=== PATIENT | female | born 1940 | race Caucasian/White ===

== ENCOUNTER → 2023-11-15 09:04 | Outpatient (REF) | payer OTHER, SELFPAY | LOC: HWRCS 09:04 | PROVIDERS: ATTENDING PHYSICIAN Internal Medicine Cardiovascular Disease; FAMILY PHYSICIAN Internal Medicine | DX: I51.81 Takotsubo syndrome (principal); I35.1 Nonrheumatic aortic (valve) insufficiency | CPT/HCPCS: 93306 ==

== ENCOUNTER → 2023-11-27 07:18 | Outpatient (REF) | payer OTHER, SELFPAY | LOC: RCS 07:18 | PROVIDERS: ATTENDING PHYSICIAN Internal Medicine Cardiovascular Disease; FAMILY PHYSICIAN Internal Medicine | DX: I51.81 Takotsubo syndrome (principal); I34.0 Nonrheumatic mitral (valve) insufficiency; I35.1 Nonrheumatic aortic (valve) insufficiency; R07.89 Other chest pain | CPT/HCPCS: 93017 ==

== ENCOUNTER 2024-05-06 08:47 | Emergency (ER) | payer OTHER, SELFPAY ==
[2024-05-06 08:57] VITALS: BP 158/88
[2024-05-06 09:22] LABS: % Basophils 0.7 % (0-2); % Eosinophils 13.6 % (0-6); % Immature Granulocytes 0.2 % (0-0.5); % Lymphocytes 34.4 % (20.5-51.1); % Monocytes 8.6 % (1.7-9.3); % Neutrophils 42.5 % (42.2-75.2); Absolute Eosinophils 0.6 10^3/uL (0-0.7); Absolute Lymphocytes 1.5 10^3/uL (1.2-3.4); Absolute Monocytes 0.4 10^3/uL (0.1-0.6); Absolute Neutrophils 1.9 10^3/uL (1.4-6.5); Hematocrit 40.4 % (37.0-47.0); Hemoglobin 13.6 g/dL (12.0-16.0); Mean Corp Hgb Conc. 33.7 g/dL (33.0-37.0); Mean Corpuscular Hgb 31.8 pg (27.0-31.0); Mean Corpuscular Volume 94.4 fL (81.0-99.0); Mean Platelet Volume 9.2 fL (7.4-10.4); Nucleated Red Blood Cells % 0 %; Platelet Count 270 10^3/uL (130-400); Red Blood Cell Count 4.28 10^6/uL (4.20-5.40); Red Cell Dist. Width 12.7 % (11.5-14.5); White Blood Cell Count 4.4 10^3/uL (4.8-10.8)
[2024-05-06 09:30] LABS: ALT (SGPT) 14 U/L (0-35); AST (SGOT) 24 U/L (14-36); Albumin 4.9 g/dl (3.5-5.0); Alkaline Phosphatase 60 U/L (38-126); Blood Urea Nitrogen 19 mg/dl (7-17); Calcium 9.3 mg/dl (8.4-10.2); Carbon Dioxide 27 mmol/L (22-30); Chloride 103 mmol/L (98-107); Glucose 96 mg/dl (70-99); Potassium 3.9 mmol/L (3.5-5.1); Sodium 139 mmol/L (135-145); Total Bilirubin 0.7 mg/dl (0.2-1.3); Total Protein 7.9 g/dl (6.3-8.2); eGFR > 60.00
[2024-05-06 09:33] LABS: INR 0.94; PT 12.9 Sec (11.4-14.6)
[2024-05-06 09:41] LABS: Troponin I < 0.012 ng/ml
--- NOTE | 2024-05-06 11:08 | ED.GENMED ---
History of Present Illness
<Christie Phillips PA-C - Last Filed: 05/06/24 19:14>
General
Chief Complaint: Chest Pain
Source: patient
Exam Limitations: none
Time Seen by Provider: 05/06/24 11:06
Nursing documentation reviewed up to this point in time: agreed with
History of Present Illness
History of Present Illness:
This is a 84-year-old female with a past medical history of coronary artery disease, Takotsubo's cardiomyopathy, hypertension, aortic regurg who presents emergency department today with concerns of chest pain since last night. Patient reports that
she was sitting on the couch when she first felt this pain. She said she started to take deep breaths, walking around her home watch a movie and went to bed. Patient then reports that she woke up with this pain which concerned her. She rates the
pain a 6 out of 10 in severity. She feels that yesterday was more pressure and now today she feels like it is squeezing quality. There is nothing that relieves the pain. She has no associated shortness of breath. This feels different than her
prior NSTEMI when she had pain across her entire chest. She denies any syncopal episodes. She follows with Dr. Saravia from [facility] cardiology. She denies nausea, vomiting, diaphoresis, fevers or chills, abdominal pain.
Past History
<Christie Phillips PA-C - Last Filed: 05/06/24 19:14>
Past History
ED Past Medical History: HTN, Hypercholesterolemia, Psychiatric (Anxiety) and Other (Takotsubo cardiomyopathy)
Social History
Tobacco: Non-smoker
Alcohol: Occasional
Drug: None
Personal:
Living: alone
Family History
Family History: Diabetes and CAD
Review of Systems
<Christie Phillips PA-C - Last Filed: 05/06/24 19:14>
Review of Systems
All Other Systems: ROS reviewed and negative except as documented in HPI and ROS
Phy Exam
<Christie Phillips PA-C - Last Filed: 05/06/24 19:14>
Physical Exam
Physical Exam:
General: Patient is well appearing and in no acute distress; non-toxic
Skin: Warm and dry, no rashes or lesions
Head: Normocephalic, atraumatic
Eyes: Sclera non-icteric. EOMs intact.
Cardiac: Regular rate and rhythm, no murmurs, no tenderness to palpation of the external chest wall
Peripheral Vascular: No lower extremity swelling or edema, 2+ DP pulses bilaterally
Pulm: Normal respiratory effort, no wheezes, rales, or rhonchi
Neuro: CN II-XII intact, no focal neurologic deficits.
Psychiatric: Appropriate mood and affect.
Scores
<Christie Phillips PA-C - Last Filed: 05/06/24 19:14>
Heart Score for Chest Pain Patients
STEMI patient?: No
History: Slightly or Non-Suspicious
ECG: Normal
Age: >/= 65 years
Risk Factors: 1 or 2 Risk Factors
Troponin: </= Normal Limit
Heart Score for Chest Pain Patients: 3
Heart Score Risk: 2.5% MACE over next 6 weeks
Course
<Christie Phillips PA-C - Last Filed: 05/06/24 19:14>
Orders/Labs/Results
Orders:
Orders
05/06/24 08:55
Electrocardiogram (*1) Urgent
Reason for Study: Chest Pain
EKG- Treatment ONCE
05/06/24 09:05
Complete Blood Count/With Diff Urgent
Comprehensive Metabolic Panel Urgent
Prothrombin Time Urgent
Troponin I Urgent
05/06/24 11:26
CR Chest - 2 Views Urgent
Comment:
Reason For Exam: left sided chest pain
05/06/24 12:00
Electrocardiogram (*1) Urgent
Reason for Study: Chest Pain
05/06/24 12:06
Aspirin 325 mg PO NOW STA
05/06/24 12:08
Nitroglycerin Sublingual [Nitrostat (Sublingual)] 0.4 mg SL NOW STA
05/06/24 12:31
Nitroglycerin Sublingual [Nitrostat (Sublingual)] 0.4 mg .ROUTE .STK-MED ONE
05/06/24 12:41
Troponin I Urgent
Abnormal Lab Results
05/06/24
09:05
WBC 4.4 L 10^3/uL
(4.8-10.8)
MCH 31.8 H pg
(27.0-31.0)
Eosinophils % 13.6 H %
(0-6)
BUN 19 H mg/dl
(7-17)
05/06/24 09:05
05/06/24 09:05
Vital Signs
Initial and Last Documented VS:
Initial Vital Signs
Temp Pulse Resp BP Pulse Ox
97.9 F 64 18 158/88 98
05/06/24 08:57 05/06/24 08:57 05/06/24 08:57 05/06/24 08:57 05/06/24 08:57
Last Documented Vital Signs
Temp Pulse Resp BP Pulse Ox
97.9 F 64 18 159/71 98
05/06/24 08:57 05/06/24 08:57 05/06/24 08:57 05/06/24 12:35 05/06/24 08:57
<Stacy Troncoso MD - Last Filed: 05/06/24 12:11>
Orders/Labs/Results
Orders:
Orders
05/06/24 08:55
Electrocardiogram (*1) Urgent
Reason for Study: Chest Pain
EKG- Treatment ONCE
05/06/24 09:05
Complete Blood Count/With Diff Urgent
Comprehensive Metabolic Panel Urgent
Prothrombin Time Urgent
Troponin I Urgent
05/06/24 11:26
CR Chest - 2 Views Urgent
Comment:
Reason For Exam: left sided chest pain
05/06/24 12:00
Electrocardiogram (*1) Urgent
Reason for Study: Chest Pain
05/06/24 12:06
Aspirin 325 mg PO NOW STA
05/06/24 12:08
Nitroglycerin Sublingual [Nitrostat (Sublingual)] 0.4 mg SL NOW STA
05/06/24 12:31
Nitroglycerin Sublingual [Nitrostat (Sublingual)] 0.4 mg .ROUTE .STK-MED ONE
05/06/24 12:41
Troponin I Urgent
Abnormal Lab Results
05/06/24
09:05
WBC 4.4 L 10^3/uL
(4.8-10.8)
MCH 31.8 H pg
(27.0-31.0)
Eosinophils % 13.6 H %
(0-6)
BUN 19 H mg/dl
(7-17)
05/06/24 09:05
05/06/24 09:05
Vital Signs
Initial and Last Documented VS:
Initial Vital Signs
Temp Pulse Resp BP Pulse Ox
97.9 F 64 18 158/88 98
05/06/24 08:57 05/06/24 08:57 05/06/24 08:57 05/06/24 08:57 05/06/24 08:57
Last Documented Vital Signs
Temp Pulse Resp BP Pulse Ox
97.9 F 64 18 159/71 98
05/06/24 08:57 05/06/24 08:57 05/06/24 08:57 05/06/24 12:35 05/06/24 08:57
<Christie Phillips PA-C - Last Filed: 05/06/24 19:14>
MDM/Problems Addressed
Differential Diagnosis Includes:
ACS, costochondritis, PE, pneumothorax
MDM/Problems Addressed:
84-year-old female with a past medical history of coronary artery disease, hypertension presents emergency department with constant left-sided chest pain. This started last night. She rates a 6 out of 10 in severity. She has no other associated
symptoms. Her physical exam is unremarkable. Her EKG shows normal sinus rhythm with no ischemic changes and her initial troponin is undetectable. Will send off a repeat troponin and chest x-ray.
On reexamination, patient does note an improvement in her pain but it is still lingering. Her repeat troponin is undetectable and repeat EKG remains unchanged. CXR negative for acute disease. Patient has a follow up appointment with Dr. Saravia in
June, discharge patient with chest pain hotline so she can get a sooner follow up appointment. Patient stable for discharge.
Chronic conditions affecting care:
HTN, takisubos
<Christie Phillips PA-C - Last Filed: 05/06/24 19:14>
*Pulse Oximetry
Patient hypoxic: no
*EKG
Interpreted by ED Provider?: Yes
EKG Intrepretation Date: 05/06/24
Interpretation: normal
Comparison EKG: changes noted (increase in T wave amplitude)
Heart Rate: 65
Rate: normal
Rhythm: sinus
[place]: normal axis
Interval: normal interval
*Critical Care Note
Total Time (30-74mins, 75-104mins- exclusive of procedures): Not Applicable
Data Reviewed
Review of Other/Old Records Reveals: Records (Reviewed exercise stress test from 11/27/2023 test was negative for ischemia) and Discharge Summary (Reviewed discharge summary from 02/05/2021, patient was found to have Takotsubo cardiomyopathy)
Source: patient and records
Prescriptions/Medications Considered But Not Given:
n/a
<Christie Phillips PA-C - Last Filed: 05/06/24 19:14>
Patient Management
Escalation/DeEscalation of care consider admission/obs:
Patient stable for discharge
ED Attending Note
<Christie Phillips PA-C - Last Filed: 05/06/24 19:14>
-
Portions of this chart may have been created with voice recognition software.� Occasional wrong word or��sound alike� substitutions may have occurred due to the inherent limitations of voice recognition software.
<Stacy Troncoso MD - Last Filed: 05/06/24 12:11>
ED Attending Note
Patient seen and examined by attending physician: Yes
I performed the substantive portion of visit, reviewed & personally made and approve the management plan that is documented in note by myself or GAURAV.: Yes
ED Attending Note:
I have seen and evaluated the patient with a [id number] encounter. I have spoken to the [PA] and involved in the medical history, the physical exam, medical decision making.
Evaluation and management service: agree unless noted differently below.
Results interpretation: agree unless noted differently below.
Patient is a 84-year-old woman presenting to the emergency department chest pain. Per chart review patient was admitted in February 2021 for elevation in her troponin was found to have Takotsubo cardiomyopathy. She does follow with cardiology.
She is not on aspirin. Yesterday while she was sleeping she woke up with left-sided chest pain. She had an easy day yesterday thinking that it would help the pain however she went to sleep and woke up at 6 AM the pain was different. It does not
feel like when she had to come to the emergency department last time. She did see cardiology back in the summer and was told that she had a leaky valve. No shortness of breath. No nausea or vomiting. No diaphoresis. No leg swelling or
hemoptysis.
GENERAL: in no acute distress
HEENT: normocephalic, extraocular movements intact, moist oral mucosa
NECK: normal inspection
RESPIRATORY: no respiratory distress, clear to auscultation bilaterally
CARDIOVASCULAR: regular rate and rhythm
ABDOMEN/: soft, non-distended, non-tender to palpation, no rebound or guarding
EXTREMITIES: non-tender, no edema/swelling
NEUROLOGIC: awake and alert, moves all extremities
SKIN: warm
84-year-old woman presenting to the emergency department with chest pain. Vitals unremarkable and exam is reassuring. Consist of atypical ACS versus pulmonary edema. History exam not consistent with PE or dissection. Will check blood work
including delta troponin given that the chest pain change at 6 AM. EKG per my interpretation normal sinus rhythm. Anticipate discharge if troponins are normal with rapid cardiology follow-up.
Discharge Plan
Departure
Patient Disposition: Home (Routine Discharge)
Date of Disposition: 05/06/24
Time of Disposition: 13:45
Patient with high blood pressure during this ER visit?: Yes
Condition: Good
Discharge Problem:
Chest pain
Instructions: Chest Pain CBC Follow Up, BLOOD PRESSURE
Prescriptions:
No Action
cetirizine 10 MG tablet
10 mg PO DAILY
docusate sodium 100 MG capsule
200 mg PO DAILY
cholecalciferol (vitamin D3) 1,000 UNITS tablet
1,000 units PO DAILY
biotin 1 MG capsule
1 mg PO DAILY
atorvastatin 40 MG tablet
40 mg PO QPM Qty: 0 0RF
metoprolol succinate 25 MG tablet extended release 24 hr
25 mg PO HS Qty: 0 0RF
Referrals:
Matilda Geronimo, [Family Provider] -
Activity Restrictions/Additional Instructions:
You should receive a call from Dr. Saravia's office to schedule a sooner follow up appointment.
PLEASE RETURN EMERGENCY DEPARTMENT SHOULD YOU DEVELOP ACUTE WORSENING OR SYMPTOMS, WEAKNESS IN ONE-SIDED BODY VERSUS OTHER, SHORTNESS OF BREATH, NAUSEA VOMITING, SYNCOPAL EPISODES, SHARP UPPER BACK PAIN, OR ANY OTHER SIGNS OR SYMPTOMS WORRISOME TO
YOU.
Interventions
Interventions:
*Risk Screen - Suicide Last Done: 05/06/24 08:57
*General Assessment Last Done: 05/06/24 08:57
*Neglect/Abuse Screening Last Done: 05/06/24 08:57
*ED COVID-19 Vaccine History Last Done: 05/06/24 12:28
*Nursing Disposition Last Done: 05/06/24 13:57
ED- Cardiac Assessment Last Done: 05/06/24 13:57
Discharge Date and Time
Discharge Date/Time: 05/06/24 13:58
Print Language: [place]URUN[place]
[2024-05-06 12:27] VITALS: BMI 21.4
[2024-05-06] MEDS: NITROSTAT (SUBLINGUAL) 0.4 MG SL (12:35)
[2024-05-06 13:18] LABS: Troponin I < 0.012 ng/ml
== END 2024-05-06 13:58 | disposition home or self-care (01) ==
LOC: EMR 08:47
PROVIDERS: Emergency Medicine; Physician Assistant; EMERGENCY PHYSICIAN Student in an Organized Health Care Education/Training Program; FAMILY PHYSICIAN Internal Medicine; REFERRING PHYSICIAN Internal Medicine Cardiovascular Disease
DX: R07.89 Other chest pain (principal); I25.10 Atherosclerotic heart disease of native coronary artery without angina pectoris; I51.81 Takotsubo syndrome; I10 Essential (primary) hypertension; I25.2 Old myocardial infarction; E78.00 Pure hypercholesterolemia, unspecified; Z82.49 Family history of ischemic heart disease and other diseases of the circulatory system; Z83.3 Family history of diabetes mellitus
CPT/HCPCS: 99283; 71046; 80053; 84484; 85025; 85610; 93005

== ENCOUNTER → 2024-05-16 16:04 | Outpatient (REF) | payer OTHER, SELFPAY ==
[2024-05-16 17:00] LABS: Troponin I < 0.012 ng/ml
[2024-05-16 17:04] LABS: ALT (SGPT) 15 U/L (0-35); AST (SGOT) 24 U/L (14-36); Albumin 4.1 g/dl (3.5-5.0); Alkaline Phosphatase 65 U/L (38-126); Direct Bilirubin 0.1 mg/dl (0.0-0.4); Lipase 129 U/L (23-300); Total Bilirubin 0.5 mg/dl (0.2-1.3); Total Protein 6.9 g/dl (6.3-8.2)
== END ==
LOC: REG 16:04
PROVIDERS: ATTENDING PHYSICIAN Internal Medicine Cardiovascular Disease
DX: R07.89 Other chest pain (principal)
CPT/HCPCS: 36415; 80076; 83690; 84484

== ENCOUNTER → 2024-05-17 11:06 | Outpatient (REF) | payer OTHER, SELFPAY | LOC: HWRCS 11:06 | PROVIDERS: ATTENDING PHYSICIAN Internal Medicine Cardiovascular Disease; FAMILY PHYSICIAN Internal Medicine | DX: I10 Essential (primary) hypertension (principal); R42 Dizziness and giddiness; I51.81 Takotsubo syndrome; R07.89 Other chest pain; I35.1 Nonrheumatic aortic (valve) insufficiency | CPT/HCPCS: 93306 ==